=== PATIENT | female | born 1995 | race Caucasian/White ===

== ENCOUNTER 2018-12-29 19:08 | Inpatient (IN) ==
[2018-12-29 20:13] LABS: Basophils % 0.2 %; Eosinophils # 0.2 K/mcL (0.0-0.6); Eosinophils % 2.3 %; Immature Granulocytes % 0.3 % (0-4); Lymphocytes # 3.2 K/mcL (0.6-4.6); Lymphocytes % 35.2 %; Mean Corpuscular HGB Conc 34.1 g/dL (31.6-35.5); Mean Corpuscular Volume 90.9 fL (83.0-100.0); Mean Platelet Volume 10.5 fL (9.4-12.4); Monocytes # 0.6 K/mcL (0.0-1.3); Neutrophils # 4.9 K/mcL (1.6-8.9); Platelet Count 201 K/mcL (140-400); Red Blood Count 4.51 M/mcL (3.82-4.97); White Blood Count 8.9 K/mcL (4.3-11.1)
[2018-12-29 20:16] LABS: Bilirubin,Urine Small (Negative); Blood,Urine Negative (Negative); Clarity,Urine Clear (Clear); Color,Urine Dark Yellow (Yellow); Glucose,Urine (UA) Normal (Normal); Ketones,Urine Trace mg/dL (Negative); Leukocyte Esterase,Urine Negative (Negative); Nitrite,Urine Negative (Negative); Protein,Urine 30 mg/dL (Neg-Trace); Specific Gravity,Urine > 1.030 (1.010-1.025); Urobilinogen,Urine Normal (Normal)
[2018-12-29 20:18] LABS: Squamous Epithelial Cell,Urine Many per lpf (None-Few)
[2018-12-29 20:21] LABS: Acetaminophen < 10 mcg/mL (10-20); BUN/Creatinine Ratio 10 (6-26); Blood Urea Nitrogen 9 mg/dL (6-20); Calcium 9.2 mg/dL (8.6-10.3); Carbon Dioxide 22 mEq/L (23-29); Chloride 109 mEq/L (98-107); Ethanol < 10 mg/dL (Less than 10); Glucose 103 mg/dL (70-105); Osmolality,Calculated 285 (280-300); Potassium 3.8 mEq/L (3.5-5.1); Salicylate 5.1 mg/dL (15.0-30.0); Sodium 138 mEq/L (136-145); eGFR For African Americans > 60 (> 60); eGFR For Non-African Americans > 60 (> 60)
[2018-12-29 20:23] LABS: Amphetamine Screen,Urine Negative ng/mL (Cutoff=1000); Barbiturate Screen,Urine Negative ng/mL (Cutoff=200); Benzodiazepines Screen,Urine Negative ng/mL (Cutoff=200); Cannabinoid Screen,Urine Negative ng/mL (Cutoff = 50); Cocaine Screen,Urine Negative ng/mL (Cutoff= 300); Opiate Screen,Urine Negative ng/mL (Cutoff=300); Phencyclidine Screen,Urine Negative ng/mL (Cutoff=25)
[2018-12-29 20:27] LABS: Bacteria,Urine Few per hpf (None-Few); Hyaline Casts,Urine None Seen per lpf (None-Few); Mucus,Urine Moderate (Few); RBC,Urine 0-3 per hpf (0-3)
--- NOTE | 2018-12-29 21:00 | Emergency Department Note ---
Disposition Clinical Impression: Suicidal ideation Bipolar disorder Qualifiers: Active/Remission status: currently active Current episode severity: unspecified Disposition: Admitted As Inpatient Condition: Good Time of Disposition: 22:06 Psych HPI - General Chief Complaint: ED Psychiatric Symptoms Stated Complaint: SI,psych eval Time Seen by Provider: 12/29/18 19:44 Nursing Notes Reviewed: Yes Vital Signs Reviewed: Yes - History of Present Illness HPI Narrative: Patient is a 23-year-old female that arrives from [facility] with reported suicidal ideation anxiety and depression. She describes a planned with attempting to hurt herself with scissors. She describes recent stressors including a recent breakup. She does describe chronic chest pain and intermittent headaches. She denies any shortness of breath, drug or alcohol use, abdominal pain, bowel or bladder symptoms. - Related Data Home Medications Medication Instructions Recorded Confirmed Escitalopram [Lexapro] 10 mg PO DAILY 12/29/18 12/29/18 Lurasidone HCl [Latuda] 60 mg PO DAILY 12/29/18 12/29/18 Propranolol [Inderal] 10 mg PO TID 12/29/18 12/29/18 Quetiapine Fumarate [Seroquel] 50 mg PO HS 12/29/18 12/29/18 Allergies Allergy/AdvReac Type Severity Reaction Status Date / Time No Known Allergies Allergy Verified 12/29/18 22:18 All systems ED: reviewed and negative except as stated. Review of Systems: As Per HPI Constitutional: Denies: fever Eyes: Denies: eye pain ENT ED: Denies: ear pain Cardiovascular: Reports: as per HPI Respiratory: Denies: dyspnea Gastrointestinal: Denies: abdominal pain Musculoskeletal: Denies: back pain Neurological: Reports: as per HPI Hematological/Lymphatic: Denies: easy bleeding Allergic/Immunologic: Denies: facial swelling Past Medical History - Past Medical History Medical history: Reports: no medical history Psychiatric history: Reports: anxiety, depression - Social History Smoking Status: Current every day smoker Physical Exam - General Limitations: no limitations General appearance: alert, in no apparent distress - Head Head exam: atraumatic, normocephalic - Eye Eye exam: Present: EOMI - ENT ENT exam: mucous membranes moist - Neck Neck exam: Present: full ROM - Chest Chest inspection: Present: symmetric chest wall rise - Respiratory Respiratory exam: Absent: respiratory distress - Cardiovascular Cardiovascular exam: Present: regular rate - Neurological Exam Neurological exam: Present: alert - Psychiatric Psychiatric exam: Present: normal affect, depressed, suicidal ideation - Skin Skin exam: Present: warm, dry, intact, normal color. Absent: rash, cyanosis, d iaphoresis Course Course Narrative: 23-year-old female presents with suicidal ideations, she describes worsening depression, social stressors. Nursing has reported patient has had previous suicide attempt. Patient seen and examined. She is alert does not appear intoxicated. Answers questions appropriately. She does not voice current suicidal ideation. Workup initiated for psychiatric evaluation. - Reevaluation(s) Reevaluation #1: Patient's chest x-ray and EKG were within normal limits. Blood work unremarkab le. Patient was evaluated by behavioral health staff. Patient was accepted by [facility] for inpatient admission and stabilization. pt to be pink slipped. Discussed patient with attending Dr. estrada who agreed to see patient and agreed with workup and admission. Time: 22:03 Vital Signs Temperature 98.6 F 12/29/18 19:10 Pulse Rate 93 12/29/18 19:10 Respiratory Rate 15 12/29/18 19:10 Blood Pressure 115/78 12/29/18 19:10 O2 Sat by Pulse Oximetry 97 12/29/18 19:10 Temperature 98.4 F 12/29/18 19:59 Pulse Rate 85 12/29/18 19:59 Respiratory Rate 17 12/29/18 19:59 Blood Pressure 109/74 12/29/18 19:59 O2 Sat by Pulse Oximetry 97 12/29/18 19:59 Oxygen Delivery Oxygen Delivery Room Air Psych - MDM Narrative Medical decision making narrative: Laboratory Tests 12/29/18 12/29/18 12/29/18 19:20 19:28 19:28 WBC 8.9 RBC 4.51 Hgb 14.0 Hct 41.0 MCV 90.9 MCH 31.0 MCHC 34.1 RDW 14.0 Plt Count 201 MPV 10.5 Immature Gran % 0.3 Seg Neutrophils % 55.0 Lymphocytes % 35.2 Monocytes % 7.0 Eosinophils % 2.3 Basophils % 0.2 Neutrophils # 4.9 Lymphocytes # 3.2 Monocytes # 0.6 Eosinophils # 0.2 Basophils # 0.0 Sodium 138 Potassium 3.8 Chloride 109 H Carbon Dioxide 22 L BUN 9 Creatinine 0.89 Est GFR ( Amer) > 60 Est GFR (Non-Af Amer) > 60 BUN/Creatinine Ratio 10 Glucose 103 Calculated Osmolality 285 Calcium 9.2 Urine Color Dark Yellow Urine Clarity Clear Urine pH 6.0 Ur Specific [place] > 1.030 H Urine Protein 30 H Urine Glucose (UA) Normal Urine Ketones Trace H Urine Blood Negative Urine Nitrite Negative Urine Bilirubin Small H Urine Urobilinogen Normal Ur Leukocyte Esterase Negative Urine Microscopic RBC 0-3 Urine Microscopic WBC 3-5 H Ur Squamous Epith Cells Many H Urine Bacteria Few Hyaline Casts None Seen Urine Mucus Moderate H Urine Test Salicylates 5.1 L Urine Opiates Screen Ur Buprenorphine Scrn Acetaminophen < 10 L Ur Barbiturates Screen Ur Phencyclidine Scrn Ur Amphetamines Screen U Benzodiazepines Scrn Urine Cocaine Screen U Marijuana (THC) Screen Ur Drug Screen Interp Ethyl Alcohol < 10 12/29/18 12/29/18 19:53 19:53 WBC RBC Hgb Hct MCV MCH MCHC RDW Plt Count MPV Immature Gran % Seg Neutrophils % Lymphocytes % Monocytes % Eosinophils % Basophils % Neutrophils # Lymphocytes # Monocytes # Eosinophils # Basophils # Sodium Potassium Chloride Carbon Dioxide BUN Creatinine Est GFR ( Amer) Est GFR (Non-Af Amer) BUN/Creatinine Ratio Glucose Calculated Osmolality Calcium Urine Color Urine Clarity Urine pH Ur Specific [place] Urine Protein Urine Glucose (UA) Urine Ketones Urine Blood Urine Nitrite Urine Bilirubin Urine Urobilinogen Ur Leukocyte Esterase Urine Microscopic RBC Urine Microscopic WBC Ur Squamous Epith Cells Urine Bacteria Hyaline Casts Urine Mucus Urine Test Negative Salicylates Urine Opiates Screen Negative Ur Buprenorphine Scrn Negative Acetaminophen Ur Barbiturates Screen Negative Ur Phencyclidine Scrn Negative Ur Amphetamines Screen Negative U Benzodiazepines Scrn Negative Urine Cocaine Screen Negative U Marijuana (THC) Screen Negative Ur Drug Screen Interp See Below Ethyl Alcohol - Lab Data Result diagrams: 12/29/18 19:28 12/29/18 19:28 Lab Results 12/29/18 12/29/18 12/29/18 Range/Units 19:20 19:28 19:28 WBC 8.9 (4.3-11.1) K/mcL RBC 4.51 (3.82-4.97) M/mcL Hgb 14.0 (11.5-15.4) g/dL Hct 41.0 (35.3-44.9) % MCV 90.9 (83.0-100.0) fL MCH 31.0 (28.0-33.3) pg MCHC 34.1 (31.6-35.5) g/dL RDW 14.0 (11.5-14.5) % Plt Count 201 (140-400) K/mcL MPV 10.5 (9.4-12.4) fL Immature Gran % 0.3 (0-4) % Seg Neutrophils % 55.0 % Lymphocytes % 35.2 % Monocytes % 7.0 % Eosinophils % 2.3 % Basophils % 0.2 % Neutrophils # 4.9 (1.6-8.9) K/mcL Lymphocytes # 3.2 (0.6-4.6) K/mcL Monocytes # 0.6 (0.0-1.3) K/mcL Eosinophils # 0.2 (0.0-0.6) K/mcL Basophils # 0.0 (0.0-0.2) K/mcL Sodium 138 (136-145) mEq/L Potassium 3.8 (3.5-5.1) mEq/L Chloride 109 H (98-107) mEq/L Carbon Dioxide 22 L (23-29) mEq/L BUN 9 (6-20) mg/dL Creatinine 0.89 (0.60-1.20) mg/dL Est GFR ( Amer) > 60 (> 60) Est GFR (Non-Af Amer) > 60 (> 60) BUN/Creatinine Ratio 10 (6-26) Glucose 103 (70-105) mg/dL Calculated Osmolality 285 (280-300) Calcium 9.2 (8.6-10.3) mg/dL Urine Color Dark Yellow (Yellow) Urine Clarity Clear (Clear) Urine pH 6.0 (5.0-8.0) pH Units Ur Specific [place] > 1.030 H (1.010-1.025) Urine Protein 30 H (Neg-Trace) mg/dL Urine Glucose (UA) Normal (Normal) mg/dL Urine Ketones Trace H (Negative) mg/dL Urine Blood Negative (Negative) Urine Nitrite Negative (Negative) Urine Bilirubin Small H (Negative) Urine Urobilinogen Normal (Normal) mg/dL Ur Leukocyte Esterase Negative (Negative) Urine Microscopic RBC 0-3 (0-3) per hpf Urine Microscopic WBC 3-5 H (0-3) per hpf Ur Squamous Epith Cells Many H (None-Few) per lpf Urine Bacteria Few (None-Few) per hpf Hyaline Casts None Seen (None-Few) per lpf Urine Mucus Moderate H (Few) Urine Test (Negative) Salicylates 5.1 L (15.0-30.0) mg/dL Urine Opiates Screen (Irnmga=454) ng/mL Ur Buprenorphine Scrn (Cutoff=5) ng/mL Acetaminophen < 10 L (10-20) mcg/mL Ur Barbiturates Screen (Xfwpim=545) ng/mL Ur Phencyclidine Scrn (Cutoff=25) ng/mL Ur Amphetamines Screen (Jbpkbv=8422) ng/mL U Benzodiazepines Scrn (Nfgcwa=398) ng/mL Urine Cocaine Screen (Cutoff= 300) ng/mL U Marijuana (THC) Screen (Cutoff = 50) ng/mL Ur Drug Screen Interp Ethyl Alcohol < 10 (Less than 10) mg/dL 12/29/18 12/29/18 Range/Units 19:53 19:53 WBC (4.3-11.1) K/mcL RBC (3.82-4.97) M/mcL Hgb (11.5-15.4) g/dL Hct (35.3-44.9) % MCV (83.0-100.0) fL MCH (28.0-33.3) pg MCHC (31.6-35.5) g/dL RDW (11.5-14.5) % Plt Count (140-400) K/mcL MPV (9.4-12.4) fL Immature Gran % (0-4) % Seg Neutrophils % % Lymphocytes % % Monocytes % % Eosinophils % % Basophils % % Neutrophils # (1.6-8.9) K/mcL Lymphocytes # (0.6-4.6) K/mcL Monocytes # (0.0-1.3) K/mcL Eosinophils # (0.0-0.6) K/mcL Basophils # (0.0-0.2) K/mcL Sodium (136-145) mEq/L Potassium (3.5-5.1) mEq/L Chloride (98-107) mEq/L Carbon Dioxide (23-29) mEq/L BUN (6-20) mg/dL Creatinine (0.60-1.20) mg/dL Est GFR ( Amer) (> 60) Est GFR (Non-Af Amer) (> 60) BUN/Creatinine Ratio (6-26) Glucose (70-105) mg/dL Calculated Osmolality (280-300) Calcium (8.6-10.3) mg/dL Urine Color (Yellow) Urine Clarity (Clear) Urine pH (5.0-8.0) pH Units Ur Specific [place] (1.010-1.025) Urine Protein (Neg-Trace) mg/dL Urine Glucose (UA) (Normal) mg/dL Urine Ketones (Negative) mg/dL Urine Blood (Negative) Urine Nitrite (Negative) Urine Bilirubin (Negative) Urine Urobilinogen (Normal) mg/dL Ur Leukocyte Esterase (Negative) Urine Microscopic RBC (0-3) per hpf Urine Microscopic WBC (0-3) per hpf Ur Squamous Epith Cells (None-Few) per lpf Urine Bacteria (None-Few) per hpf Hyaline Casts (None-Few) per lpf Urine Mucus (Few) Urine Test Negative (Negative) Salicylates (15.0-30.0) mg/dL Urine Opiates Screen Negative (Dnrwpk=593) ng/mL Ur Buprenorphine Scrn Negative (Cutoff=5) ng/mL Acetaminophen (10-20) mcg/mL Ur Barbiturates Screen Negative (Eitnwh=183) ng/mL Ur Phencyclidine Scrn Negative (Cutoff=25) ng/mL Ur Amphetamines Screen Negative (Mnmmyn=0144) ng/mL U Benzodiazepines Scrn Negative (Qgrmqg=602) ng/mL Urine Cocaine Screen Negative (Cutoff= 300) ng/mL U Marijuana (THC) Screen Negative (Cutoff = 50) ng/mL Ur Drug Screen Interp See Below Ethyl Alcohol (Less than 10) mg/dL - Radiology Data Radiology results reviewed: Yes I reviewed the patient's radiology results. - EKG Data EKG attestation: Yes I reviewed and interpreted this EKG. EKG shows normal: sinus rhythm Rate: normal Rhythm: NSR Jackson/QRS: normal Voltage: increased voltage throughout Interpretation: no acute changes, normal EKG Psychiatric Medical Clearance - Medical Clearance Checklist Does the patient have a NEW psychiatric condition?: No Any abnormalities indicating possible medical illness?: No Any history of medical issues?: No Medical History: (This Medical Record has been edited. Action required.) No Social History Section defined Any abnormal vital signs prior to transfer?: No Current Vitals: Last Vital Signs Temp 98.4 F 12/29/18 19:59 Pulse 85 12/29/18 19:59 Resp 17 12/29/18 19:59 BP 109/74 12/29/18 19:59 Pulse Ox 97 12/29/18 19:59 Is the patient intoxicated or cognitively impaired?: No Psychiatric Lab Panel: Drug Levels and Toxicity 12/29/18 12/29/18 19:28 19:53 Urine Opiates Screen Negative Acetaminophen < 10 L Ur Barbiturates Screen Negative Ur Phencyclidine Scrn Negative Ur Amphetamines Screen Negative U Benzodiazepines Scrn Negative Urine Cocaine Screen Negative U Marijuana (THC) Screen Negative Ethyl Alcohol < 10 Any abnormalities on the physical exam?: No Any abnormal labs?: No Abnormal Labs: Abnormal lab results Chloride 109 mEq/L (98-107) H 12/29/18 19:28 Carbon Dioxide 22 mEq/L (23-29) L 12/29/18 19:28 Ur Specific [place] > 1.030 (1.010-1.025) H 12/29/18 19:20 Urine Protein 30 mg/dL (Neg-Trace) H 12/29/18 19:20 Urine Ketones Trace mg/dL (Negative) H 12/29/18 19:20 Urine Bilirubin Small (Negative) H 12/29/18 19:20 Urine Microscopic WBC 3-5 per hpf (0-3) H 12/29/18 19:20 Ur Squamous Epith Cells Many per lpf (None-Few) H 12/29/18 19:20 Urine Mucus Moderate (Few) H 12/29/18 19:20 Salicylates 5.1 mg/dL (15.0-30.0) L 12/29/18 19:28 Acetaminophen < 10 mcg/mL (10-20) L 12/29/18 19:28 Does the patient require durable medical equiptment?: No Is the patient ambulatory?: Yes Is the patient a fall risk?: No Has the patient been medically cleared?: Yes Any acute medical condition require Tx prior to transfer?: Yes Statement of Medical Clearance: I have evaluated the patient, reviewed diagnostic information, and certify that the patient's medical condition is sufficiently stable that transfer to the psychiatric unit does not pose a significant risk of deterioration.
--- NOTE | 2018-12-29 22:10 | Emergency Department Note ---
Disposition Clinical Impression: Suicidal ideation Bipolar disorder Qualifiers: Active/Remission status: currently active Current episode severity: unspecified Disposition: Admitted As Inpatient Referrals: NONE,PCP [Primary Care Provider] - Forms: ED Satisfaction Letter Time of Disposition: 22:10 General Adult HPI - General Chief complaint: ED Psychiatric Symptoms Stated complaint: SI,psych eval Time Seen by Provider: 12/29/18 19:44 Limitations: no limitations Nursing Notes Reviewed: Yes Vital Signs Reviewed: Yes - History of Present Illness Pain Scale: 10 - Related Data Previous Rx's Medication Instructions Recorded cephALEXin [Keflex] 500 mg PO TID 7 Days #21 capsule 11/23/18 clonazePAM [Clonazepam] 0.25 mg PO Q6HR 6 Days #12 11/23/18 tab.rapdis Allergies Allergy/AdvReac Type Severity Reaction Status Date / Time No Known Allergies Allergy Verified 12/29/18 19:10 Constitutional: Denies: fever Eyes: Denies: eye pain ENT ED: Denies: ear pain Cardiovascular: Reports: as per HPI Respiratory: Denies: dyspnea Gastrointestinal: Denies: abdominal pain Musculoskeletal: Denies: back pain Neurological: Reports: as per HPI Hematological/Lymphatic: Denies: easy bleeding Allergic/Immunologic: Denies: facial swelling Past Medical History - Past Medical History Medical history: Reports: no medical history Psychiatric history: Reports: anxiety, depression - Social History Smoking Status: Current every day smoker Physical Exam - General Limitations: no limitations General appearance: alert, in no apparent distress Course Vital Signs Temperature 98.6 F 12/29/18 19:10 Pulse Rate 93 12/29/18 19:10 Respiratory Rate 15 12/29/18 19:10 Blood Pressure 115/78 12/29/18 19:10 O2 Sat by Pulse Oximetry 97 12/29/18 19:10 Temperature 98.4 F 12/29/18 19:59 Pulse Rate 85 12/29/18 19:59 Respiratory Rate 17 12/29/18 19:59 Blood Pressure 109/74 12/29/18 19:59 O2 Sat by Pulse Oximetry 97 12/29/18 19:59 Oxygen Delivery Oxygen Delivery Room Air Medical Decision Making - Lab Data Result diagrams: 12/29/18 19:28 12/29/18 19:28 Lab Results 12/29/18 12/29/18 12/29/18 Range/Units 19:20 19:28 19:28 WBC 8.9 (4.3-11.1) K/mcL RBC 4.51 (3.82-4.97) M/mcL Hgb 14.0 (11.5-15.4) g/dL Hct 41.0 (35.3-44.9) % MCV 90.9 (83.0-100.0) fL MCH 31.0 (28.0-33.3) pg MCHC 34.1 (31.6-35.5) g/dL RDW 14.0 (11.5-14.5) % Plt Count 201 (140-400) K/mcL MPV 10.5 (9.4-12.4) fL Immature Gran % 0.3 (0-4) % Seg Neutrophils % 55.0 % Lymphocytes % 35.2 % Monocytes % 7.0 % Eosinophils % 2.3 % Basophils % 0.2 % Neutrophils # 4.9 (1.6-8.9) K/mcL Lymphocytes # 3.2 (0.6-4.6) K/mcL Monocytes # 0.6 (0.0-1.3) K/mcL Eosinophils # 0.2 (0.0-0.6) K/mcL Basophils # 0.0 (0.0-0.2) K/mcL Sodium 138 (136-145) mEq/L Potassium 3.8 (3.5-5.1) mEq/L Chloride 109 H (98-107) mEq/L Carbon Dioxide 22 L (23-29) mEq/L BUN 9 (6-20) mg/dL Creatinine 0.89 (0.60-1.20) mg/dL Est GFR ( Amer) > 60 (> 60) Est GFR (Non-Af Amer) > 60 (> 60) BUN/Creatinine Ratio 10 (6-26) Glucose 103 (70-105) mg/dL Calculated Osmolality 285 (280-300) Calcium 9.2 (8.6-10.3) mg/dL Urine Color Dark Yellow (Yellow) Urine Clarity Clear (Clear) Urine pH 6.0 (5.0-8.0) pH Units Ur Specific [place] > 1.030 H (1.010-1.025) Urine Protein 30 H (Neg-Trace) mg/dL Urine Glucose (UA) Normal (Normal) mg/dL Urine Ketones Trace H (Negative) mg/dL Urine Blood Negative (Negative) Urine Nitrite Negative (Negative) Urine Bilirubin Small H (Negative) Urine Urobilinogen Normal (Normal) mg/dL Ur Leukocyte Esterase Negative (Negative) Urine Microscopic RBC 0-3 (0-3) per hpf Urine Microscopic WBC 3-5 H (0-3) per hpf Ur Squamous Epith Cells Many H (None-Few) per lpf Urine Bacteria Few (None-Few) per hpf Hyaline Casts None Seen (None-Few) per lpf Urine Mucus Moderate H (Few) Urine Test (Negative) Salicylates 5.1 L (15.0-30.0) mg/dL Urine Opiates Screen (Gderid=436) ng/mL Ur Buprenorphine Scrn (Cutoff=5) ng/mL Acetaminophen < 10 L (10-20) mcg/mL Ur Barbiturates Screen (Hlnxih=473) ng/mL Ur Phencyclidine Scrn (Cutoff=25) ng/mL Ur Amphetamines Screen (Htstht=0359) ng/mL U Benzodiazepines Scrn (Rbzugc=167) ng/mL Urine Cocaine Screen (Cutoff= 300) ng/mL U Marijuana (THC) Screen (Cutoff = 50) ng/mL Ur Drug Screen Interp Ethyl Alcohol < 10 (Less than 10) mg/dL 12/29/18 12/29/18 Range/Units 19:53 19:53 WBC (4.3-11.1) K/mcL RBC (3.82-4.97) M/mcL Hgb (11.5-15.4) g/dL Hct (35.3-44.9) % MCV (83.0-100.0) fL MCH (28.0-33.3) pg MCHC (31.6-35.5) g/dL RDW (11.5-14.5) % Plt Count (140-400) K/mcL MPV (9.4-12.4) fL Immature Gran % (0-4) % Seg Neutrophils % % Lymphocytes % % Monocytes % % Eosinophils % % Basophils % % Neutrophils # (1.6-8.9) K/mcL Lymphocytes # (0.6-4.6) K/mcL Monocytes # (0.0-1.3) K/mcL Eosinophils # (0.0-0.6) K/mcL Basophils # (0.0-0.2) K/mcL Sodium (136-145) mEq/L Potassium (3.5-5.1) mEq/L Chloride (98-107) mEq/L Carbon Dioxide (23-29) mEq/L BUN (6-20) mg/dL Creatinine (0.60-1.20) mg/dL Est GFR ( Amer) (> 60) Est GFR (Non-Af Amer) (> 60) BUN/Creatinine Ratio (6-26) Glucose (70-105) mg/dL Calculated Osmolality (280-300) Calcium (8.6-10.3) mg/dL Urine Color (Yellow) Urine Clarity (Clear) Urine pH (5.0-8.0) pH Units Ur Specific [place] (1.010-1.025) Urine Protein (Neg-Trace) mg/dL Urine Glucose (UA) (Normal) mg/dL Urine Ketones (Negative) mg/dL Urine Blood (Negative) Urine Nitrite (Negative) Urine Bilirubin (Negative) Urine Urobilinogen (Normal) mg/dL Ur Leukocyte Esterase (Negative) Urine Microscopic RBC (0-3) per hpf Urine Microscopic WBC (0-3) per hpf Ur Squamous Epith Cells (None-Few) per lpf Urine Bacteria (None-Few) per hpf Hyaline Casts (None-Few) per lpf Urine Mucus (Few) Urine Test Negative (Negative) Salicylates (15.0-30.0) mg/dL Urine Opiates Screen Negative (Sguloo=400) ng/mL Ur Buprenorphine Scrn Negative (Cutoff=5) ng/mL Acetaminophen (10-20) mcg/mL Ur Barbiturates Screen Negative (Osbkrr=847) ng/mL Ur Phencyclidine Scrn Negative (Cutoff=25) ng/mL Ur Amphetamines Screen Negative (Ghjqlu=8796) ng/mL U Benzodiazepines Scrn Negative (Hrysti=428) ng/mL Urine Cocaine Screen Negative (Cutoff= 300) ng/mL U Marijuana (THC) Screen Negative (Cutoff = 50) ng/mL Ur Drug Screen Interp See Below Ethyl Alcohol (Less than 10) mg/dL Attestation Statement - Attestation Attestation: I examined this patient and my medical decision-making was reviewed with the Resident Physician. I agree with the documented findings, disposition and treatment plan as described except to the extent set forth below. Patient to the ED with chief complaint of suicidal thoughts. History of bipolar disorder. On exam she is a flat affect but she is, cooperative in no distress. Patient was evaluated by [facility]A who feel she is appropriate for admission. [place] slip on chart. Patient with no concerns.
[2018-12-29] MEDS ORDERED: MOM Conc 10 ML UD.LIQ PO PRN (22:14)
[2018-12-29] MEDS ORDERED: *HR* LORazepam 2 MG/ML VIAL IM PRN (22:14)
[2018-12-29] MEDS ORDERED: Haloperidol Lactate 5 MG/ML VIAL IM PRN (22:14)
[2018-12-29] MEDS ORDERED: *HR* LORazepam 1 MG TABLET PO PRN (22:14)
[2018-12-29] MEDS ORDERED: Mag Hydrox/Al Hydrox/Simeth 30 ML UDC PO PRN (22:14)
[2018-12-29] MEDS ORDERED: Acetaminophen 325 MG TABLET PO PRN (22:14)
[2018-12-29] MEDS ORDERED: traZODone 50 MG TABLET PO PRN (22:14)
[2018-12-29] MEDS: hydrOXYzine pamoate 25 MG CAPSULE PO PRN (23:13)
[2018-12-29] MEDS: Ibuprofen 400 MG TABLET PO PRN (23:13)
[2018-12-30] MEDS: Nicotine 14 MG PATCH.TD24 TD SCH (08:23)
[2018-12-30] MEDS: hydrOXYzine pamoate 25 MG CAPSULE PO PRN ×2 (08:59→20:07)
--- NOTE | 2018-12-30 11:04 | Psychiatry History & Physical ---
Date of Encounter: 12/30/18 Time of Encounter: 10:52 History of Present Illness Patient Stated Chief Complaint: suicidal ideation Medicare Admission Attestation: For traditional Medicare patients the provided hospital inpatient services are reasonable and necessary and in the case of services not specified as inpatient-only under 42 CFR 419.22 (n), that they are appropriately provided as inpatient services in accordance 42 CFR 412.3. For Critical Access Hospital the patient may reasonably be expected to be discharged or transferred to a hospital within 96 hours after admission to the Critical Access Hospital. Admitted From: Home Plans for Post Hospital Care: Home History of Present Illness: Ms. Elias is a 23 year old female who was admitted for SI. Client currently resides at [facility]. 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 Multiple recent stressors including a break-up, and feeling overwhelmed with work and AOD groups. States her anxiety is high and her depression is getting worse. Client has been linked with outpatient mental health services for several years and currently sees Wendy Denise at [facility]. Client denies any prior inpatient treatment. Admits to past suicide attempts via cutting and hanging. Client states mental illness runs in her family. Believes her mother is clinically depressed and her father has been in and out of fpc. Client reports she is physically healthy but that she has no appetite and is losing weight which she attributes to her depression and anxiety. Client has had several med trials with only limited success. Currently prescribed Latuda, Propranolol, and Lexapro. Client states Risperdal worked much better for her than the Latuda and would like switched back to it. Discussed Remeron to help with sleep and appetite in addition to mood and client states she would like to try this. Also asked to try Neurontin for anxiety as this was recommended to her by a staff person at [facility]. Discussed how Neurontin is a controlled medication and that using it for anxiety is off label. Client expressed understanding and indicated all her meds are controlled/dispensed by staff at [facility] and that she has tried most everything else with minimal clinical improvement. Will start a low dose of this to see what she thinks. Past Med Surg Social Fam HX - Past Medical History Medical history: no medical history - Past Psychiatric History Psychiatric history: Reports: anxiety, depression, prior suicide attempt Family psychiatric history: Yes Family Psychiatric History Details: mother-depression. father-in and out of fpc Family History of Suicide: None - Social History Smoking Status: Current every day smoker Medications & Allergies Escitalopram [Lexapro] 10 mg PO DAILY 12/29/18 [History] Lurasidone HCl [Latuda] 60 mg PO DAILY 12/29/18 [History] Propranolol [Inderal] 10 mg PO TID 12/29/18 [History] Quetiapine Fumarate [Seroquel] 50 mg PO HS 12/29/18 [History] Allergy/AdvReac Type Severity Reaction Status Date / Time No Known Allergies Allergy Verified 12/29/18 22:18 Review of Systems Constitutional: Denies: fever, chills, weakness, weight change Eyes: Denies: eye pain, vision change Ears, Nose, Throat: Denies: ear pain, throat pain, dental pain, hearing loss, congestion Cardiovascular: Denies: chest pain, palpitations, dyspnea on exertion Respiratory: Denies: cough, dyspnea, wheezes Gastrointestinal: Denies: abdominal pain, nausea, vomiting, diarrhea, constipation Genitourinary female: Denies: urgency, dysuria, frequency, abnormal menses, dyspareunia Musculoskeletal: Denies: joint swelling, joint pain Integumentary: Denies: rash, lesions, pruritus Neurological: Denies: headache, weakness, numbness, memory loss Endocrine: Denies: fatigue, heat or cold intolerance Hematologic/Lymphatic: Denies: easy bruising, lymphadenopathy Allergic/Immunologic: Denies: urticaria, itchy eyes Exam - HEENT Head exam IM: Present: atraumatic Eye exam IM: Present: EOMI, normal appearance, PERRL ENT exam IM: Present: normal exam - Neurological Neurological exam: Present: CN II-XII intact - Respiratory Respiratory exam IM: Present: CTAB - GI/Abdominal GI/Abdominal exam IM: Present: normal bowel sounds, soft. Absent: tenderness - Extremities Extremities exam IM: Present: full ROM - Skin Skin exam IM: Present: dry, warm - Constitutional Vitals: Temp Pulse Resp BP Pulse Ox 97.8 F 85 16 111/77 99 12/30/18 09:00 12/30/18 09:00 12/30/18 09:00 12/30/18 09:00 12/30/18 09:00 General appearance: age & developmentally appropriate, well-groomed, well- nourished - Musculoskeletal Gait: normal Station: relaxed Strength & Tone: normal for patient - Psychiatric Patient Orientation: Yes Person, Yes Time, Yes Place Level of alertness: Alert Behavior: calm, cooperative Psychomotor activity: Normal Eye Contact: Maintains Eye Contact Mood Description: Depressed, Anxious Affect description: congruent with mood, full range Speech Volume: Normal Speech pattern: normal rate, normal rhythm, normal tone, fluent, spontaneous Language & Vocabulary: consistent with education Thought Process: Linear, Goal Oriented Thought Content: Yes Suicidal ideation, No Homicidal ideation, No Overt delusions Perceptual Disturbances: No Auditory hallucinations, No Visual hallucinations Attention Span Ability: Capable of Focused Attention Memory Description: Grossly Intact Patient Reliability: Reliable Historian Fund of knowledge: Yes abstraction ability, Yes average, Yes aware of current events Intelligence Estimate: Average Judgment: Fair Insight: Partial Results - Drug Levels and Toxicology Drug Levels and Toxicology: Drug Levels and Toxicity 12/29/18 12/29/18 19:28 19:53 Urine Opiates Screen Negative Acetaminophen < 10 L Ur Barbiturates Screen Negative Ur Phencyclidine Scrn Negative Ur Amphetamines Screen Negative U Benzodiazepines Scrn Negative Urine Cocaine Screen Negative U Marijuana (THC) Screen Negative Ethyl Alcohol < 10 - Labs Labs: Laboratory Last Values WBC 8.9 K/mcL (4.3-11.1) 12/29/18 19:28 RBC 4.51 M/mcL (3.82-4.97) 12/29/18 19:28 Hgb 14.0 g/dL (11.5-15.4) 12/29/18 19:28 Hct 41.0 % (35.3-44.9) 12/29/18 19:28 MCV 90.9 fL (83.0-100.0) 12/29/18 19:28 MCH 31.0 pg (28.0-33.3) 12/29/18 19:28 MCHC 34.1 g/dL (31.6-35.5) 12/29/18 19:28 RDW 14.0 % (11.5-14.5) 12/29/18 19:28 Plt Count 201 K/mcL (140-400) 12/29/18 19:28 MPV 10.5 fL (9.4-12.4) 12/29/18 19:28 Immature Gran % 0.3 % (0-4) 12/29/18 19:28 Seg Neutrophils % 55.0 % 12/29/18 19:28 Lymphocytes % 35.2 % 12/29/18 19:28 Monocytes % 7.0 % 12/29/18 19:28 Eosinophils % 2.3 % 12/29/18 19:28 Basophils % 0.2 % 12/29/18 19:28 Neutrophils # 4.9 K/mcL (1.6-8.9) 12/29/18 19:28 Lymphocytes # 3.2 K/mcL (0.6-4.6) 12/29/18 19:28 Monocytes # 0.6 K/mcL (0.0-1.3) 12/29/18 19:28 Eosinophils # 0.2 K/mcL (0.0-0.6) 12/29/18 19: Basophils # 0.0 K/mcL (0.0-0.2) 12/29/18 19:28 Sodium 138 mEq/L (136-145) 12/29/18 19:28 Potassium 3.8 mEq/L (3.5-5.1) 12/29/18 19:28 Chloride 109 mEq/L (98-107) H 12/29/18 19:28 Carbon Dioxide 22 mEq/L (23-29) L 12/29/18 19:28 BUN 9 mg/dL (6-20) 12/29/18 19:28 Creatinine 0.89 mg/dL (0.60-1.20) 12/29/18 19:28 Est GFR ( Amer) > 60 (> 60) 12/29/18 19:28 Est GFR (Non-Af Amer) > 60 (> 60) 12/29/18 19:28 BUN/Creatinine Ratio 10 (6-26) 12/29/18 19:28 Glucose 103 mg/dL (70-105) 12/29/18 19:28 Calculated Osmolality 285 (280-300) 12/29/18 19:28 Calcium 9.2 mg/dL (8.6-10.3) 12/29/18 19:28 Urine Color Dark Yellow (Yellow) 12/29/18 19:20 Urine Clarity Clear (Clear) 12/29/18 19:20 Urine pH 6.0 pH Units (5.0-8.0) 12/29/18 19:20 Ur Specific [place] > 1.030 (1.010-1.025) H 12/29/18 19:20 Urine Protein 30 mg/dL (Neg-Trace) H 12/29/18 19:20 Urine Glucose (UA) Normal mg/dL (Normal) 12/29/18 19:20 Urine Ketones Trace mg/dL (Negative) H 12/29/18 19:20 Urine Blood Negative (Negative) 12/29/18 19:20 Urine Nitrite Negative (Negative) 12/29/18 19:20 Urine Bilirubin Small (Negative) H 12/29/18 19:20 Urine Urobilinogen Normal mg/dL (Normal) 12/29/18 19:20 Ur Leukocyte Esterase Negative (Negative) 12/29/18 19:20 Urine Microscopic RBC 0-3 per hpf (0-3) 12/29/18 19:20 Urine Microscopic WBC 3-5 per hpf (0-3) H 12/29/18 19:20 Ur Squamous Epith Cells Many per lpf (None-Few) H 12/29/18 19:20 Urine Bacteria Few per hpf (None-Few) 12/29/18 19:20 Hyaline Casts None Seen per lpf (None-Few) 12/29/18 19:20 Urine Mucus Moderate (Few) H 12/29/18 19:20 Urine Test Negative (Negative) 12/29/18 19:53 Salicylates 5.1 mg/dL (15.0-30.0) L 12/29/18 19:28 Urine Opiates Screen Negative ng/mL (Mgixje=891) 12/29/18 19:53 Ur Buprenorphine Scrn Negative ng/mL (Cutoff=5) 12/29/18 19:53 Acetaminophen < 10 mcg/mL (10-20) L 12/29/18 19:28 Ur Barbiturates Screen Negative ng/mL (Frsyha=894) 12/29/18 19:53 Ur Phencyclidine Scrn Negative ng/mL (Cutoff=25) 12/29/18 19:53 Ur Amphetamines Screen Negative ng/mL (Vihnki=1104) 12/29/18 19:53 U Benzodiazepines Scrn Negative ng/mL (Hxnkmp=240) 12/29/18 19:53 Urine Cocaine Screen Negative ng/mL (Cutoff= 300) 12/29/18 19:53 U Marijuana (THC) Screen Negative ng/mL (Cutoff = 50) 12/29/18 19:53 Ur Drug Screen Interp See Below 12/29/18 19:53 Ethyl Alcohol < 10 mg/dL (Less than 10) 12/29/18 19:28 - Impressions Impressions Chest X-Ray 12/29/18 21:02 IMPRESSION: Normal portable chest examination. D/ / Jamarcus Soto MD / Jamarcus Soto MD Interpreting Provider: Jamarcus Soto MD Assessment and Plan (1) Major depression Current visit: Yes Status: Acute Plan: Admit inpatient for safety and stabilization, Close observation, Suicide Precautions per unit protocol, Encourage participation in unit milieu, Group Therapy, Monitor sleep, Monitor appetite Risks, benefits, side effects, alternatives discussed w/pt: Yes Patient agreeable to treatment: Yes Plans for Post Hospital Care: Home Estimated Length of Stay (Days): 4 Qualifiers: Major depression recurrence: recurrent Active/Remission status: currently active Major depression episode severity: severe Psychotic features: without psychotic features Qualified Code(s): F33.2 - Major depressive disorder, recurrent severe without psychotic features
[2018-12-30] MEDS ORDERED: Gabapentin 100 MG CAPSULE PO ONE (11:13)
[2018-12-30] MEDS: risperiDONE 0.25 MG TABLET PO SCH (11:30)
[2018-12-30] MEDS: Gabapentin 100 MG CAPSULE PO SCH ×2 (11:31→20:07)
--- NOTE | 2018-12-30 11:31 | Electrocardiograph Report ---
[address] [place], [place] [address] Test Date: 2018-12-29 Pat Name: Julisa Elias Department: EXAM21 Room: 1A21 Gender: F Brinell Tester: : 1995 Requested By: Jose Luis Aguilar Order Number: [id number] Reading MD: Eddie Packer Measurements Intervals Snook Rate: 86 P: 64 NC: 161 QRS: 71 QRSD: 78 T: 47 QT: 348 QTc: 417 Interpretive Statements Sinus rhythm Electronically Signed On 12-30-2018 11:30:14 EDT by Eddie Packer
[2018-12-30] MEDS: Ibuprofen 400 MG TABLET PO PRN (20:06)
[2018-12-30] MEDS ORDERED: risperiDONE 1 MG TABLET PO SCH (21:00)
[2018-12-30] MEDS ORDERED: Mirtazapine 15 MG TABLET PO SCH (21:00)
--- NOTE | 2018-12-31 09:17 | Discharge Summary ---
Date of Encounter: 12/31/18 Time of Encounter: 09:07 Diagnosis - Discharge Diagnosis (1) Major depression Status: Acute Qualifiers: Major depression recurrence: recurrent Active/Remission status: currently active Major depression episode severity: severe Psychotic features: without psychotic features Qualified Code(s): F33.2 - Major depressive disorder, recurrent severe without psychotic features Medications - Discharge Medications Prescriptions: Gabapentin [Neurontin] 100 mg PO BID #60 capsule Transmission Status: Pending to [facility] Mirtazapine [Remeron] 7.5 mg PO HS #15 tablet Transmission Status: Pending to [facility] risperiDONE [RisperDAL] 1 mg PO HS #30 tablet Transmission Status: Pending to [facility] risperiDONE [RisperDAL] 0.5 mg PO DAILY #60 tablet Transmission Status: Pending to [facility] Gabapentin [Neurontin] 100 mg PO BID #60 capsule 12/31/18 [Rx] Mirtazapine [Remeron] 7.5 mg PO HS #15 tablet 12/31/18 [Rx] Quetiapine Fumarate [Seroquel] 50 mg PO HS PRN tablet 12/31/18 [Rx] risperiDONE [RisperDAL] 0.5 mg PO DAILY #60 tablet 12/31/18 [Rx] risperiDONE [RisperDAL] 1 mg PO HS #30 tablet 12/31/18 [Rx] Allergy/AdvReac Type Severity Reaction Status Date / Time No Known Allergies Allergy Verified 12/29/18 22:18 Results Procedures and tests throughout hospitalization: Completed Lab Orders Category Date Time Status Acetaminophen Stat Lab 12/29/18 19:28 Completed Basic Metabolic Panel Stat Lab 12/29/18 19:28 Completed Complete Blood Count [HEME] Stat Lab 12/29/18 19:28 Completed Drug Screen, Urine [UCHEM] Stat Lab 12/29/18 19:53 Completed Ethanol Stat Lab 12/29/18 19:28 Completed Test Result, Urine [URIN] Stat Lab 12/29/18 19:53 Completed Salicylate Stat Lab 12/29/18 19:28 Completed Urinalysis reflex Microscopic [URIN] Stat Lab 12/29/18 19:20 Completed Completed Imaging Orders Category Date Time Status XR chest 1V portable [XR] Stat Exams 12/29/18 19:47 Completed Provider Date of admission: 12/29/18 22:13 Primary care physician: PCP NONE Discharging clinician: Jen Fong Psychiatry Exam - Constitutional Vitals: Temp Pulse Resp BP Pulse Ox 97.6 F 95 16 117/77 98 12/30/18 20:12 12/30/18 20:12 12/30/18 20:12 12/30/18 20:12 12/30/18 20:12 General appearance: age & developmentally appropriate, well-groomed, well- nourished - Musculoskeletal Gait: normal Station: relaxed Strength & Tone: normal for patient - Psychiatric Patient Orientation: Yes Person, Yes Time, Yes Place Level of alertness: Alert Behavior: calm, cooperative Psychomotor activity: Normal Eye Contact: Maintains Eye Contact Mood Description: Depressed Affect description: congruent with mood Speech Volume: Normal Speech pattern: normal rate, normal rhythm, normal tone, fluent, spontaneous Language & Vocabulary: consistent with education Thought Process: Linear, Goal Oriented Thought Content: No Suicidal ideation, No Homicidal ideation, No Overt delusions Perceptual Disturbances: No Auditory hallucinations, No Visual hallucinations Attention Span Ability: Capable of Focused Attention Memory Description: Grossly Intact Patient Reliability: Reliable Historian Fund of knowledge: Yes abstraction ability, Yes aware of current events Intelligence Estimate: Average Judgment: Fair Insight: Partial Hospital Course Hospital course: Ms. Elias is a 23 year old female who was admitted with SI. Client currently resides at [facility] and has been sober from Heroin since April. Client is linked with mental health services but she was taking a medication regimen that was not working to control her depression and anxiety. At time of admission client was being prescribed Latuda, Lexapro, and Propranolol and denied any of it was helping her. She was endorsing poor sleep, poor appetite, high anxiety, and suicidal thoughts. Client indicated she had taken Risperdal in the past with better results and asked to switch back to it from the Latuda. She was also started on Remeron in place of the Lexapro to better control her sleep and appetite. Client specifically asked to try low dose Neurontin as well as this had been recommended to her by a staff person at [facility]. Client expressed understanding that Neurontin is a controlled substance but indicated all of her medications are given to her by staff at [facility] and that neither she nor the other clients have any access to the medications. On eval today client reports she is feeling much better. Denying any further SI, intent, or plan. Denying side effects to medications and reports she believes this new medication regimen will work for her. Claims she slept well last night and that her appetite is back. Interacting appropriately on the unit and attending groups. States she misses her job and wants to leave to go back to work and reengage with her recovery program. Has built in supports where she is residing and she is already linked with a prescriber and counselor. Future oriented today. Total time spent with client greater than 30 minutes. Patient was educated of her diagnosis and the risks, benefits, and side effects of this treatment and alternative treatment options and was monitored for responsiveness and side effects. Mood, anxiety, sleep, appetite, and interest improved, as did future orientation. Self-harm thoughts subsided, thinking cleared, psychosis resolved, and mood stabilized. Patient was able to attend both individual and group therapy sessions as well as meeting with the psychiatrist daily and urged to discuss any medication or treatment issues or other concerns. The patient was educated primarily by verbal means about their diagnosis and manifestations in their life. The option for treatment including group and individual therapy programming was offered to the patient in the use of medications with all their potential risks, benefits, and side effects were discussed with the patient at length. The patient was given the opportunity to ask questions and was noted to participate in the treatment in the planning process. The patient felt ready and eager to be discharged from the inpatient psychiatric unit to continue on with treatment as an outpatient. The patient agreed that she is safe for this disposition. The patient was considered to be able to participate in informed consent and decision making with respect to medical, legal, and financial issues of the time of discharge. At the time of discharge the patient adamantly denied any concerns for lethality including suicidal or homicidal thoughts ideations or plans and was future oriented toward ongoing mental health care, medical follow-up and sobriety. - Time Spent with Patient Total time spent providing and/or coordinating discharge services: Greater than 30 minutes Assessment and Plan - Patient/Caregiver Discharge Instructions Activity: resume usual activities as tolerated Diet: regular diet - Follow up Plan Follow up with: Farhan Brown [Other] (You will be returning to [facility] upon discharge from the hospital. While there, you [facility] and complex case manager, both individually and in group. Please work with [facility] staff to develop a treatment plan to fit your individual needs and goals. ) [facility] [Outside] - 01/20/19 11:00 am (You have an appointment scheduled on Sunday, January 20, 2019 at 1:[address] Prudencio Moreno, PhD for Counseling. You have an appointment scheduled for Monday, February 04, 2019 at 9:[address] Los Murphy DO for medication management. Please contact the office at least 24 hours in advance if you are unable to keep your appointment(s). ) Functional capacity at discharge: independent ambulation Overall status at discharge: Stable Disposition: Home, Self-Care Quality - Multiple Antipsychotics Patient discharged on 2 or more antipsychotic medications: No Procedures - Procedures Procedures: Medication Management, Crisis Stabilization, Supportive Therapy, Group Therapy
[2018-12-31] MEDS: Nicotine 14 MG PATCH.TD24 TD SCH (09:39)
[2018-12-31] MEDS: Gabapentin 100 MG CAPSULE PO SCH (09:39)
[2018-12-31] MEDS: risperiDONE 0.25 MG TABLET PO SCH (09:39)
[2018-12-31 10:16] VITALS: BP 114/79
== END 2018-12-31 13:25 | disposition home or self-care (01) | DRG 751 ==
LOC: EMEROOARM 19:08 → 1ANU 22:13
PROVIDERS: ADMIT Psychiatry & Neurology Psychiatry; ATTEND Psychiatry & Neurology Psychiatry